=== PATIENT | female | born 1995 | race American Indian/Alaskan Native ===

== ENCOUNTER 2017-05-24 19:45 | Emergency (ER) | payer SELFPAY ==
[2017-05-24 20:50] LABS: Basophils % (Auto) 0.3 % (0.0-1.8); Eosinophils % (Auto) 0.9 % (0.0-4.3); Hematocrit 34.5 % (30.3-42.9); Hemoglobin 11.2 gm/dl (10.1-14.3); Mean Corpuscular HGB Conc 32 % (30-34); Mean Corpuscular Hemoglobin 27 pg (28-32); Mean Corpuscular Volume 83 fl (79-97); Platelet Count 265 K/mm3 (140-440); Red Blood Count 4.18 M/mm3 (3.65-5.03); Red Cell Distribution Width 14.7 % (13.2-15.2); White Blood Count 9.8 K/mm3 (4.5-11.0)
[2017-05-24 21:04] LABS: Anion Gap 19 mmol/L; BUN/Creatinine Ratio 11.42; Blood Urea Nitrogen 8 mg/dL (7-17); Calcium 9.3 mg/dL (8.4-10.2); Carbon Dioxide 21 mmol/L (22-30); Chloride 100.9 mmol/L (98-107); Glucose 77 mg/dL (65-100); Potassium 3.5 mmol/L (3.6-5.0); Sodium 137 mmol/L (137-145)
--- NOTE | 2017-05-24 21:35 | Emergency Department Report ---
ED Anxiety HPI - General Chief Complaint: Chest Pain Stated Complaint: ANXIETY Time Seen by Provider: 05/24/17 20:52 Source: patient, EMS Mode of arrival: Stretcher - History of Present Illness Initial Comments: 22-year-old female past medical history panic attacks/anxiety attacks presents with complaint of anxiety episode this afternoon after arguing with her boyfriend. Patient is awake alert and oriented 3 not in acute distress sitting calmly in examination room. Patient denies current chest pain shortness of breath palpitations nausea vomiting headache dizziness fever chills dysuria paresthesias. Patient when specifically asked denies suicidal or homicidal ideation and/or visual or auditory hallucinations. Patient states she occasionally smokes marijuana but does not do any other drugs and drinks alcohol occasionally. Patient does not currently have primary care doctor and has never seen a psychiatrist on an outpatient basis for anxiety attacks. States that she gets them intermittently every few weeks to months and that they last a few minutes at a time. The episode today lasted for a few minutes after having a personal argument with her boyfriend. Boyfriend at bedside. I asked boyfriend stepped away during my clinical interview with the patient. I asked patient specifically if she feels threatened or for life is in danger and she specifically says no. Complaint: anxiety -: This afternoon Previous History of Same: No Quality: constant Provoking factors: none known Improves With: nothing Worsens With: nothing Associated symptoms: palpitations - Related Data Home Medications: Previous Rx's Medication Instructions Recorded Last Taken Type Hydroxyzine HCl 25 mg PO Q8H PRN #10 tablet 05/24/17 Unknown Rx Allergies/Adverse Reactions: Allergies Allergy/AdvReac Type Severity Reaction Status Date / Time No Known Allergies Allergy Unverified 05/24/17 20:14 ED Review of Systems ROS: Stated complaint: ANXIETY Other details as noted in HPI Constitutional: denies: chills, fever Eyes: denies: eye pain, eye discharge, vision change ENT: denies: ear pain, throat pain Respiratory: denies: cough, shortness of breath, wheezing Cardiovascular: denies: chest pain, palpitations Endocrine: no symptoms reported Gastrointestinal: denies: abdominal pain, nausea, diarrhea Genitourinary: denies: urgency, dysuria, discharge Musculoskeletal: denies: back pain, joint swelling, arthralgia Skin: denies: rash, lesions Neurological: denies: headache, weakness, paresthesias Psychiatric: denies: anxiety, depression Hematological/Lymphatic: denies: easy bleeding, easy bruising ED Past Medical Hx - Past Medical History Previous Medical History?: No - Surgical History Past Surgical History?: No - Social History Smoking Status: Current Some Day Smoker Substance Use Type: Alcohol - Medications Home Medications: Home Medications Medication Instructions Recorded Confirmed Last Taken Type Hydroxyzine HCl 25 mg PO Q8H PRN #10 tablet 05/24/17 Unknown Rx ED Physical Exam - General Limitations: No Limitations General appearance: alert, in no apparent distress - Head Head exam: Present: atraumatic, normocephalic - Eye Eye exam: Present: normal appearance, PERRL, EOMI - ENT ENT exam: Present: mucous membranes moist - Neck Neck exam: Present: normal inspection, full ROM - Respiratory Respiratory exam: Present: normal lung sounds bilaterally. Absent: respiratory distress - Cardiovascular Cardiovascular Exam: Present: regular rate, normal rhythm. Absent: systolic murmur, diastolic murmur, rubs, gallop - GI/Abdominal GI/Abdominal exam: Present: soft, normal bowel sounds - Extremities Exam Extremities exam: Present: normal inspection - Back Exam Back exam: Present: normal inspection - Neurological Exam Neurological exam: Present: alert, oriented X3, CN II-XII intact, normal gait - Expanded Neurological Exam Expanded Patient oriented to: Present: person, place, time Cerebellar function: Finger to Nose: Normal, Heel to [place]: Normal, [place]: Normal Motor strength exam: RUE: 5, LUE: 5, RLE: 5, LLE: 5 Best Eye Response ([place]): (4) open spontaneously Best Motor Response ([place]): (6) obeys commands Best Verbal Response ([place]): (5) oriented [place] Total: 15 - Psychiatric Psychiatric exam: Present: normal affect (patient currently has normal mood and affect during my interaction/interview of her), normal mood - Skin Skin exam: Present: warm, dry, intact, normal color. Absent: rash ED Course Vital Signs 05/24/17 05/24/17 05/24/17 19:55 20:51 21:50 Temperature 98.4 F 98.7 F Pulse Rate 105 H 92 H 93 H Respiratory 26 H 16 16 Rate Blood Pressure 142/89 Blood Pressure 132/82 129/74 [Left] O2 Sat by Pulse 100 100 99 Oximetry ED Medical Decision Making - Lab Data Result diagrams: 05/24/17 20:31 05/24/17 20:31 - Medical Decision Making A/P: Anxiety attack/ panic attack 1-PERC score 0 criteria No need for further workup, as <2% chance of PE. If no criteria are positive and clinicians pre-test probability is <15%, PERC Rule criteria are satisfied. 2-patient denies suicidal or homicidal ideation states she is not at risk at home with her partner. Denies any visual or auditory hallucinations 3-I consulted mental health worker Kylee to provide patient with outpatient resources for outpatient psychiatric consultation 4- referred to primary care 5- I provided information to patient on how to manage her anxiety and will prescribe a short course of hydroxyzine when necessary Critical care attestation.: If time is entered above; I have spent that time in minutes in the direct care of this critically ill patient, excluding procedure time. ED Disposition Clinical Impression: Anxiety, Panic attack Disposition: - TO HOME OR SELFCARE Is pt being admited?: No Does the pt Need Aspirin: No Condition: Stable Instructions: Hydroxyzine Hydrochloride (By mouth), Stress (ED), Panic Disorder (ED), Anxiety (ED) Prescriptions: Hydroxyzine HCl 25 mg PO Q8H PRN #10 tablet PRN Reason: Anxiety Referrals: [facility] [Outside] - 3-5 Days [facility] [Outside] - 3-5 Days AINSLEY BARLOW MD [Staff Physician] - 3-5 Days [facility] [Outside] - 3-5 Days [facility] [Outside] - 3-5 Days Forms: Accompanied Note, Work/School Release Form(ED) Time of Disposition: 22:02
[2017-05-24 21:42] LABS: Bilirubin,Urine NEG (Negative); Blood,Urine NEG (Negative); Ketones,Urine NEG (Negative); Leukocyte Esterase,Urine MOD (Negative); Mucus,Urine FEW /HPF; Nitrite,Urine NEG (Negative); Protein,Urine <15 mg/dL mg/dL (Negative); Urobilinogen,Urine < 2.0 mg/dL (<2.0)
[2017-05-24 22:19] VITALS: BP 129/74
== END 2017-05-24 22:14 | disposition home or self-care (01) ==
LOC: ED 19:45
DX: F41.0 Panic disorder [episodic paroxysmal anxiety] (principal); F17.210 Nicotine dependence, cigarettes, uncomplicated
CPT/HCPCS: 36415; 80048; 81001; 84484; 84703; 85025; 93005; 93010; 99284

== ENCOUNTER 2017-09-24 21:32 | Emergency (ER) | payer SELFPAY ==
[2017-09-24 22:01] VITALS: BP 129/93
== END 2017-09-25 00:29 | disposition left against medical advice (07) ==
LOC: ED 21:32
DX: F41.0 Panic disorder [episodic paroxysmal anxiety] (principal); Z53.21 Procedure and treatment not carried out due to patient leaving prior to being seen by health care provider

== ENCOUNTER 2018-04-22 21:50 | Emergency (ER) | payer SELFPAY ==
--- NOTE | 2018-04-22 23:14 | Emergency Department Report ---
ED Psych HPI - General Chief Complaint: Psych Stated Complaint: SUICIDAL THOUGHTS/MH Time Seen by Provider: 04/22/18 23:02 Source: patient Mode of arrival: Ambulatory Limitations: No Limitations - History of Present Illness Initial Comments: 23-year-old female with a past medical history of anxiety not currently on meds or under psychiatric care presents to the hospital with complaints of suicidal ideation with plan. The patient has been having a disagreement with her boyfriend which has triggered this episode. Her plan is to run into traffic or cut herself. She denies physical complaints, auditory or visual hallucinations. History of suicidal thoughts while she was in high school but she has never attempted. Pt is currently on her menstrual cycle - Related Data Previous Rx's Medication Instructions Recorded Last Taken Type hydrOXYzine HCl [Hydroxyzine HCl] 25 mg PO Q8H PRN #10 tablet 05/24/17 Unknown Rx Allergies Allergy/AdvReac Type Severity Reaction Status Date / Time No Known Allergies Allergy Unverified 05/24/17 20:14 ED Review of Systems ROS: Stated complaint: SUICIDAL THOUGHTS/MH Other details as noted in HPI Comment: All other systems reviewed and negative ED Past Medical Hx - Past Medical History Previous Medical History?: Yes Additional medical history: ANXIETY - Surgical History Past Surgical History?: No - Social History Smoking Status: Current Some Day Smoker Substance Use Type: None - Medications Home Medications: Home Medications Medication Instructions Recorded Confirmed Last Taken Type hydrOXYzine HCl [Hydroxyzine HCl] 25 mg PO Q8H PRN #10 tablet 05/24/17 Unknown Rx ED Physical Exam - General Limitations: No Limitations - Other Other exam information: General: No limitations, patient is alert in no acute distress Head exam: Atraumatic, normocephalic Eyes exam: Normal appearance ENT: Moist mucous membrane, normal oropharynx Neck exam: Normal inspection, full range of motion, no meningismus nontender Respiratory exam: Clear to auscultation bilateral, no wheezes, rales, crackles Cardiovascular: Normal rate and rhythm, normal heart sounds Abdomen: Soft, nondistended, and nontender, with normal bowel sounds, no rebound, or guarding Extremity: Full range of motion normal inspection no deformity Back: Normal Inspection, full range of motion, no tenderness Neurologic: Alert, oriented x3, cranial nerves intact, no motor or sensory deficit Psychiatric: deppressed affect Skin: Warm, dry, intact ED Course Vital Signs 04/22/18 04/22/18 04/22/18 22:07 22:11 22:15 Temperature 99.4 F 98.7 F Pulse Rate 85 Respiratory 18 17 Rate Blood Pressure 127/83 127/83 O2 Sat by Pulse 99 Oximetry ED Medical Decision Making - Lab Data Result diagrams: 04/22/18 23:19 04/22/18 23:19 Lab Results 04/22/18 04/22/18 04/22/18 Range/Units 23:19 23:19 23:19 WBC 9.4 (4.5-11.0) K/mm3 RBC 4.45 (3.65-5.03) M/mm3 Hgb 12.7 (10.1-14.3) gm/dl Hct 37.0 (30.3-42.9) % MCV 83 (79-97) fl MCH 29 (28-32) pg MCHC 34 (30-34) % RDW 16.3 H (13.2-15.2) % Plt Count 279 (140-440) K/mm3 Lymph % (Auto) 24.7 (13.4-35.0) % [place] % (Auto) 7.5 H (0.0-7.3) % Eos % (Auto) 0.5 (0.0-4.3) % Baso % (Auto) 0.4 (0.0-1.8) % Lymph # 2.3 (1.2-5.4) K/mm3 [place] # 0.7 (0.0-0.8) K/mm3 Eos # 0.0 (0.0-0.4) K/mm3 Baso # 0.0 (0.0-0.1) K/mm3 Seg Neutrophils % 66.9 (40.0-70.0) % Seg Neutrophils # 6.3 (1.8-7.7) K/mm3 Sodium 137 (137-145) mmol/L Potassium 3.6 (3.6-5.0) mmol/L Chloride 98.4 (98-107) mmol/L Carbon Dioxide 23 (22-30) mmol/L Anion Gap 19 mmol/L BUN 8 (7-17) mg/dL Creatinine 0.7 (0.7-1.2) mg/dL Estimated GFR > 60 ml/min BUN/Creatinine Ratio 11 % Glucose 89 (65-100) mg/dL Calcium 9.3 (8.4-10.2) mg/dL HCG, Qual (Negative) Urine Color (Yellow) Urine Turbidity (Clear) Urine pH (5.0-7.0) Ur Specific [place] (1.003-1.030) Urine Protein (Negative) mg/dL Urine Glucose (UA) (Negative) mg/dL Urine Ketones (Negative) mg/dL Urine Blood (Negative) Urine Nitrite (Negative) Urine Bilirubin (Negative) Urine Urobilinogen (<2.0) mg/dL Ur Leukocyte Esterase (Negative) Urine WBC (Auto) (0.0-6.0) /HPF Urine RBC (Auto) (0.0-6.0) /HPF U Epithel Cells (Auto) (0-13.0) /HPF Urine Mucus /HPF Salicylates < 0.3 L (2.8-20.0) mg/dL Urine Opiates Screen Urine Methadone Screen Acetaminophen (10.0-30.0) ug/mL Ur Barbiturates Screen Ur Phencyclidine Scrn Ur Amphetamines Screen U Benzodiazepines Scrn Urine Cocaine Screen U Marijuana (THC) Screen Drugs of Abuse Note Plasma/Serum Alcohol (0-0.07) % 04/22/18 04/22/18 04/22/18 Range/Units 23:19 23:19 23:19 WBC (4.5-11.0) K/mm3 RBC (3.65-5.03) M/mm3 Hgb (10.1-14.3) gm/dl Hct (30.3-42.9) % MCV (79-97) fl MCH (28-32) pg MCHC (30-34) % RDW (13.2-15.2) % Plt Count (140-440) K/mm3 Lymph % (Auto) (13.4-35.0) % [place] % (Auto) (0.0-7.3) % Eos % (Auto) (0.0-4.3) % Baso % (Auto) (0.0-1.8) % Lymph # (1.2-5.4) K/mm3 [place] # (0.0-0.8) K/mm3 Eos # (0.0-0.4) K/mm3 Baso # (0.0-0.1) K/mm3 Seg Neutrophils % (40.0-70.0) % Seg Neutrophils # (1.8-7.7) K/mm3 Sodium (137-145) mmol/L Potassium (3.6-5.0) mmol/L Chloride (98-107) mmol/L Carbon Dioxide (22-30) mmol/L Anion Gap mmol/L BUN (7-17) mg/dL Creatinine (0.7-1.2) mg/dL Estimated GFR ml/min BUN/Creatinine Ratio % Glucose (65-100) mg/dL Calcium (8.4-10.2) mg/dL HCG, Qual Negative (Negative) Urine Color (Yellow) Urine Turbidity (Clear) Urine pH (5.0-7.0) Ur Specific [place] (1.003-1.030) Urine Protein (Negative) mg/dL Urine Glucose (UA) (Negative) mg/dL Urine Ketones (Negative) mg/dL Urine Blood (Negative) Urine Nitrite (Negative) Urine Bilirubin (Negative) Urine Urobilinogen (<2.0) mg/dL Ur Leukocyte Esterase (Negative) Urine WBC (Auto) (0.0-6.0) /HPF Urine RBC (Auto) (0.0-6.0) /HPF U Epithel Cells (Auto) (0-13.0) /HPF Urine Mucus /HPF Salicylates (2.8-20.0) mg/dL Urine Opiates Screen Urine Methadone Screen Acetaminophen < 5.0 L (10.0-30.0) ug/mL Ur Barbiturates Screen Ur Phencyclidine Scrn Ur Amphetamines Screen U Benzodiazepines Scrn Urine Cocaine Screen U Marijuana (THC) Screen Drugs of Abuse Note Plasma/Serum Alcohol < 0.01 (0-0.07) % 04/22/18 04/22/18 Range/Units 23:27 23:27 WBC (4.5-11.0) K/mm3 RBC (3.65-5.03) M/mm3 Hgb (10.1-14.3) gm/dl Hct (30.3-42.9) % MCV (79-97) fl MCH (28-32) pg MCHC (30-34) % RDW (13.2-15.2) % Plt Count (140-440) K/mm3 Lymph % (Auto) (13.4-35.0) % [place] % (Auto) (0.0-7.3) % Eos % (Auto) (0.0-4.3) % Baso % (Auto) (0.0-1.8) % Lymph # (1.2-5.4) K/mm3 [place] # (0.0-0.8) K/mm3 Eos # (0.0-0.4) K/mm3 Baso # (0.0-0.1) K/mm3 Seg Neutrophils % (40.0-70.0) % Seg Neutrophils # (1.8-7.7) K/mm3 Sodium (137-145) mmol/L Potassium (3.6-5.0) mmol/L Chloride (98-107) mmol/L Carbon Dioxide (22-30) mmol/L Anion Gap mmol/L BUN (7-17) mg/dL Creatinine (0.7-1.2) mg/dL Estimated GFR ml/min BUN/Creatinine Ratio % Glucose (65-100) mg/dL Calcium (8.4-10.2) mg/dL HCG, Qual (Negative) Urine Color Yellow (Yellow) Urine Turbidity Clear (Clear) Urine pH 5.0 (5.0-7.0) Ur Specific [place] 1.014 (1.003-1.030) Urine Protein <15 mg/dl (Negative) mg/dL Urine Glucose (UA) Neg (Negative) mg/dL Urine Ketones 20 (Negative) mg/dL Urine Blood Lg (Negative) Urine Nitrite Neg (Negative) Urine Bilirubin Neg (Negative) Urine Urobilinogen < 2.0 (<2.0) mg/dL Ur Leukocyte Esterase Neg (Negative) Urine WBC (Auto) < 1.0 (0.0-6.0) /HPF Urine RBC (Auto) 3.0 (0.0-6.0) /HPF U Epithel Cells (Auto) 2.0 (0-13.0) /HPF Urine Mucus Few /HPF Salicylates (2.8-20.0) mg/dL Urine Opiates Screen Presumptive negative Urine Methadone Screen Presumptive negative Acetaminophen (10.0-30.0) ug/mL Ur Barbiturates Screen Presumptive negative Ur Phencyclidine Scrn Presumptive negative Ur Amphetamines Screen Presumptive negative U Benzodiazepines Scrn Presumptive negative Urine Cocaine Screen Presumptive negative U Marijuana (THC) Screen Presumptive negative Drugs of Abuse Note Disclamer Plasma/Serum Alcohol (0-0.07) % - Medical Decision Making SI with plan 1013 and transfer form signed no physical complaints MH eval and transfer medically cleared blood in urine due to menses, no infection - Differential Diagnosis si, depression, anxiety, bipolar Critical Care Time: No Critical care attestation.: If time is entered above; I have spent that time in minutes in the direct care of this critically ill patient, excluding procedure time. ED Disposition Clinical Impression: Suicide ideation, Medical clearance for psychiatric admission Disposition: [id number]/TX-65 PSY HOSP/PSY UNIT Is pt being admited?: No Does the pt Need Aspirin: No Condition: Stable Time of Disposition: 01:05 (awaiting eval and acceptance)
[2018-04-22 23:42] LABS: Basophils % (Auto) 0.4 % (0.0-1.8); Eosinophils % (Auto) 0.5 % (0.0-4.3); Hemoglobin 12.7 gm/dl (10.1-14.3); Lymphocytes # (Auto) 2.3 K/mm3 (1.2-5.4); Lymphocytes % (Auto) 24.7 % (13.4-35.0); Mean Corpuscular HGB Conc 34 % (30-34); Mean Corpuscular Hemoglobin 29 pg (28-32); Mean Corpuscular Volume 83 fl (79-97); Monocytes # (Auto) 0.7 K/mm3 (0.0-0.8); Monocytes % (Auto) 7.5 % (0.0-7.3); Platelet Count 279 K/mm3 (140-440); Red Blood Count 4.45 M/mm3 (3.65-5.03); Red Cell Distribution Width 16.3 % (13.2-15.2)
[2018-04-22 23:44] LABS: Bilirubin,Urine NEG (Negative); Blood,Urine LG (Negative); Color,Urine Yellow (Yellow); Mucus,Urine FEW /HPF; Protein,Urine <15 mg/dL mg/dL (Negative); Urobilinogen,Urine < 2.0 mg/dL (<2.0); WBC,Urine < 1.0 /HPF (0.0-6.0)
[2018-04-23] LABS: BUN/Creatinine Ratio 11; Blood Urea Nitrogen 8 mg/dL (7-17); Calcium 9.3 mg/dL (8.4-10.2); Hemolysis Index 29
[2018-04-23 00:09] LABS: Amphetamine Screen,Urine PRESUMPTIVE NEGATIVE; Benzodiazepines Screen,Urine PRESUMPTIVE NEGATIVE; Cannabinoid Screen,Urine PRESUMPTIVE NEGATIVE; Cocaine Screen,Urine PRESUMPTIVE NEGATIVE; Methadone Screen,Urine PRESUMPTIVE NEGATIVE; Opiate Screen,Urine PRESUMPTIVE NEGATIVE
--- NOTE | 2018-04-23 13:55 | Consultation ---
History of Present Illness - Reason for Consult Consult date: 04/23/18 Reason for consult: Mental Health Evaluation Requesting physician: ANABELA POWERS - Chief Complaint Chief complaint: "I had plans to kill myself" - History of Present Psychiatric Illness 23-year-old AA female presenting to the ER for SI's with a plan to walk into ongoing traffic. Today the patient is calm during the assessment. She stated that she is having relationship issues with her boyfriend whom she reside with. She acknowledged not working and dependant of her boyfriend. She was vague about exact issues they are having. She stated feeling hopeless and helpless about her situation. She admitted that she had a plan to walk into ongoing traffic so she can be hit by a car. She stated having previous suicidal thoughts as a adolescent. She denies ever seeing a psychiatrist in the past for her suicidal thoughts. She paused for several seconds when asked if she was suicidal. She stated "no." She denies erratic sleep and a poor appetite. She denies any manic episodes in the past. She stated that she smoke marijuana to "mellow out." She denies alcohol consumption (etoh). She stated that she prefer to speak with a therapist at this time instead of taking medication for depression. Medications and Allergies Allergies Allergy/AdvReac Type Severity Reaction Status Date / Time No Known Allergies Allergy Unverified 05/24/17 20:14 Home Medications Medication Instructions Recorded Confirmed Last Taken Type hydrOXYzine HCl [Hydroxyzine HCl] 25 mg PO Q8H PRN #10 tablet 05/24/17 Unknown Rx Past psychiatric history - Past Medical History Past Medical History: No medical history Past Surgical History: No surgical history - past Psychiatric treatment and history psychiatric treatment history: Denies a psy hx and fam psy hx. - Social History Social history: other (Reside with her boyfriend) Mental Status Exam - Vital signs Last Vital Signs Temp 98.7 F 04/22/18 22:15 Pulse 78 04/23/18 09:41 Resp 18 04/23/18 09:41 BP 123/76 04/23/18 09:41 Pulse Ox 98 04/23/18 09:41 - Exam Narrative exam: MSE: Appearance: calm, cooperative Behavior: regular eye contact Speech: regular rate and low tone Mood: "okay" Affect: congruent to mood Thought Process: circumstantial Thought Content: denies SI/HI's and AVH's Motor Activity: ambulatory Cognition: A/O x 3 Insight: variable Judgment: variable Results Result Diagrams: 04/22/18 23:19 04/22/18 23:19 Abnormal lab results 04/22/18 04/22/18 04/22/18 Range/Units 23:19 23:19 23:19 RDW 16.3 H (13.2-15.2) % [place] % (Auto) 7.5 H (0.0-7.3) % Salicylates < 0.3 L (2.8-20.0) mg/dL Acetaminophen < 5.0 L (10.0-30.0) ug/mL All other labs normal. Assessment and Plan Assessment and plan: Impression: MDD, Severe Type. Today the patient is calm during the assessment. UDS is negative. DDx: R/O Bipolar DO Recommendation/Plan: Continue 1013 and gather collateral information to determine proper dispo. Discussed risk/benefits of antidepressants with patient. At this time the patient prefer therapy for her depression. Discussed generalized coping skills with patient. Discussed the 1013 and IP criteria process with the patient, she verbalized understanding.
--- NOTE | 2018-04-24 16:40 | Progress Note ---
Subjective - Reason for Consult Consult date: 04/24/18 Reason for consult: Psychiatry Follow-up - Chief Complaint Chief complaint: "I have learned my lesson" 23-year-old AA female presenting to the ER for SI's with a plan to walk into ongoing traffic. Today the patient is calm during the assessment. She stated that she have done a lot of thinking reference her life since being in the ER. She stated that her life mean a lot to her and plan on making better decisions. She stated that she want to move back with her mother and finish her GED. Per collateral information from her mother Leydi Riso at [phone], she confirmed that her daughter will move with her and return to [place], [place] once discharged. She stated that she has set up outpatient psy services (therapy ) for her daughter. The patient denies SI/HI's and AVH's. Mental Status Exam - Vital signs Last Vital Signs Temp 98.8 F 04/24/18 10:00 Pulse 89 04/24/18 10:00 Resp 18 04/24/18 12:49 BP 123/74 04/24/18 10:00 Pulse Ox 100 04/24/18 12:49 - Exam Narrative exam: MSE: Appearance: calm, cooperative Behavior: regular eye contact Speech: regular rate and low tone Mood: "okay" Affect: congruent to mood Thought Process: linear Thought Content: denies SI/HI's and AVH's Motor Activity: ambulatory Cognition: A/O x 3 Insight: appropriate Judgment: appropriate Assessment and Plan Impression: MDD, Severe Type. Today the patient is calm during the assessment. UDS is negative. The patient is no threat to self. DDx: R/O Bipolar DO Recommendation/Plan: Rescind 1013. Discussed risk/benefits of antidepressants with patient. At this time the patient prefer therapy as treatment for her depression. Discussed generalized coping skills with patient. The patient's mother Leydi Rios has set up outpatient psy services (therapy) for her daughter in [place], [place]. If the patient stay local, she can follow up at [facility] for outpatient psy services (therapy).
--- NOTE | 2018-04-24 17:47 | Emergency Department Report ---
Blank Doc - Documentation Documentation: Ms. Melara has been a patient in our ED for the past 2 days. She has been followed by our psychiatric team. 1013 has been resciended by psychiatric speicalist. She was given outpatient resources. I provided discharge order. I did review documentation. She is appropriate for discharge.
[2018-04-24 18:54] VITALS: BP 119/69
== END 2018-04-24 18:40 ==
LOC: ED 21:50
DX: R45.851 Suicidal ideations (principal); F41.9 Anxiety disorder, unspecified; Z72.0 Tobacco use; Z79.899 Other long term (current) drug therapy
CPT/HCPCS: 36415; 80048; 80307; 81001; 84703; 85025; 99285; G0480; 80320